=== PATIENT | male | born 1995 | race American Indian/Alaskan Native ===

== ENCOUNTER 2019-08-02 12:35 | Emergency (ER) | payer OTHER ==
[~2019-08-02] VITALS: Ht 172.7 cm; Wt 95.5 kg
[2019-08-02 12:42] VITALS: TEMP 98.9
[2019-08-02 13:37] VITALS: PULSE 76
== END 2019-08-02 13:39 | disposition home or self-care (01) ==
LOC: COL.ER 12:35
DX: S69.91XA Unspecified injury of right wrist, hand and finger(s), initial encounter (principal); W23.0XXA Caught, crushed, jammed, or pinched between moving objects, initial encounter